=== PATIENT | female | born 1985 | race Native Hawaiian/Other Pacific Islander ===

== ENCOUNTER 2021-02-09 10:24 | Outpatient (CLI) | payer OTHER | END 2021-02-09 20:02 | disposition home or self-care (01) | LOC: US 10:24 | PROVIDERS: ATTEND Physician Assistant | DX: R09.81 Nasal congestion (principal); R22.1 Localized swelling, mass and lump, neck ==

== ENCOUNTER 2021-02-20 09:50 | Outpatient (CLI) | payer OTHER | END 2021-02-20 19:41 | disposition home or self-care (01) | LOC: US 09:50 | PROVIDERS: ATTEND Nurse Practitioner Family | DX: N18.4 Chronic kidney disease, stage 4 (severe) (principal) ==

== ENCOUNTER 2021-03-11 08:15 | Outpatient (CLI) | payer OTHER | END 2021-03-11 19:14 | disposition home or self-care (01) | LOC: MAMMO 08:15 → RAD 10:00 → MAMMO 19:14 | PROVIDERS: ATTEND Nurse Practitioner Family | DX: R13.10 Dysphagia, unspecified (principal); Z80.3 Family history of malignant neoplasm of breast ==

== ENCOUNTER 2021-07-06 10:42 | Outpatient (CLI) | payer OTHER | END 2021-07-06 18:53 | disposition home or self-care (01) | LOC: RAD 10:42 | PROVIDERS: ATTEND Nurse Practitioner Family | DX: M72.2 Plantar fascial fibromatosis (principal) ==

== ENCOUNTER 2022-04-29 13:58 | Outpatient (CLI) | payer OTHER | END 2022-04-29 19:05 | disposition home or self-care (01) | LOC: US 13:58 | PROVIDERS: ATTEND Physician Assistant | DX: M25.471 Effusion, right ankle (principal) ==